=== PATIENT | male | born 1965 | race Caucasian/White ===

== ENCOUNTER 2016-07-07 09:57 | Day surgery (SDC) | payer BC ==
[~2016-07-07 09:57] MED LIST: PROPOFOL 500 MG/50 ML EMU IV ONE
[2016-07-07] MEDS ORDERED: PROPOFOL 10 MG/ML EMU IV ONE (10:53)
[2016-07-07 11:21] VITALS: O2SAT 96
[2016-07-07 11:56] VITALS: BP 103/64; PULSE 70; RESP 20; TEMP 97.7
== END 2016-07-07 12:14 | disposition home or self-care (01) ==
LOC: SURG 09:57
PROVIDERS: ATTEND Surgery
DX: Z12.11 Encounter for screening for malignant neoplasm of colon (principal); Z80.0 Family history of malignant neoplasm of digestive organs
CPT/HCPCS: 45378; J2704 ×2